=== PATIENT | female | born 1980 | race Caucasian/White ===

== ENCOUNTER 2016-10-30 05:41 | Day surgery (SDC) | payer OTHER ==
[~2016-10-30] VITALS: Ht 170.2 cm; Wt 133.1 kg
[2016-10-30] VITALS (29 sets, daily range): BP systolic 124–164; BP diastolic 59–87; PULSE 56–92; RESP 12–19; TEMP 96.9–98.8; O2SAT 90–100; Ht 170.2 cm; Wt 133.1 kg
[~2016-10-30 05:41] MED LIST: DOCU-168 PO; LABE100T19 PO
[2016-10-30] MEDS ORDERED: BUPIVACAINE 0.25% (2.5mg/ml) INJ 30ml SDV ONE (06:19)
[2016-10-30 06:21] LABS: BASOPHILS % (AUTO) 0.3 % (0-2); EOSINOPHILS # (AUTO) 0.2 T/MM3 (0-0.5); EOSINOPHILS % (AUTO) 2.9 % (0-4); HCT - HEMATOCRIT 39.1 % (36-46); IMMATURE GRANULOCYTE # (AUTO) 0.01 T/MM3 (0.00-0.03); IMMATURE GRANULOCYTE % (AUTO) 0.1 % (0.0-0.5); LYMPHOCYTES % (AUTO) 38.3 % (23-45); MEAN CORPUSCULAR HGB 27.6 UUG (26-34); MEAN CORPUSCULAR HGB CONC(MCHC 33.2 GM/DL (31-37); MEAN PLATELET VOLUME 10.1 UM3 (9.4-12.4); MONOCYTES # (AUTO) 0.5 T/MM3 (0-0.8); MONOCYTES % (AUTO) 6.1 % (0-9.0); NEUTROPHILS % (AUTO) 52.3 % (33-66); RED BLOOD COUNT 4.71 M/MM3 (4.00-5.20); WBC - WHITE BLOOD COUNT 7.7 T/MM3 (4.5-11.0)
[2016-10-30 06:31] LABS: ALBUMIN 4.1 G/DL (3.5-5.0); ALBUMIN/GLOBULIN RATIO 1.1 RATIO (1.1-2.2); ALKALINE PHOSPHATASE 135 U/L (38-126); ALT (SGPT) 39 U/L (9-52); ANION GAP 15 MEQ/L (5-15); AST (SGOT) 25 U/L (14-36); BUN/CREATININE RATIO 13 RATIO (6-26); CALCIUM 9.6 MG/DL (8.4-10.2); CHLORIDE 105 MEQ/L (98-107); CO2 - CARBON DIOXIDE 24 MEQ/L (22-30); CREATININE 0.9 MG/DL (0.7-1.2); GLOMERULAR FILTRATION RATE 70; GLUCOSE 101 MG/DL (65-110); POTASSIUM 4.2 MEQ/L (3.6-5); SODIUM 144 MEQ/L (134-144); TOTAL PROTEIN 7.8 G/DL (6.3-8.2)
[2016-10-30] MEDS: LR 1,000 ML IV SCH ×2 (06:42→11:15)
[2016-10-30] MEDS ORDERED: LIDOCAINE 1% (10mg/ml) 2ml SDV INJ ONE (07:00)
--- NOTE | 2016-10-30 07:14 | ANESPREOP ---
Anesthesia Record Date and Time DATE: 10/30/16 TIME: 07:12 Pre-Op Diagnosis menometrorrhagia dysmenorrhea Proposed Surgical Procedure ROBOTIC HYSTERECTOMY Allergies: Coded Allergies: Sulfa (Sulfonamide Antibiotics) (Verified Allergy, Mild, HIVES, 10/30/16) Ht/Wt/BMI Height: 5 ' 7.00 " Weight: 130.100 kg BMI: 44.9 kg/m2 Vital Signs Date Time Temp Pulse Resp B/P Pulse Ox O2 Delivery O2 Flow Rate FiO2 10/30/16 06:15 98.7 87 15 164/85 96 Room Air Medications Inpatient Medications Current Medications Medications (Trade) Dose Ordered Sig/Tariq Start Time Stop Time Status Last Admin Dose Admin Lactated Ringer's (Lactated Ringers) 1,000 ml @ 100 mls/hr Q10H 10/30/16 07:00 10/30/16 06:42 100 MLS/HR Docusate Sodium (Colace) 100 Mg Capsule, 2 CAP PO DAILY, (Reported) Last Taken: on 10/28/16 1900 Labetalol Hcl (Labetalol Hcl) 100 Mg Tablet, 150 MG PO BID, (Reported) Last Taken: on 10/30/16 0515 Currently on Beta Yamil: Yes Beta Yamil Last Taken: 10-30-16 @ 0515 Medical/Surgical History Anesthesia PMH: Reports: *Hypertension, Denies: *Angina, *Diabetes, *[place], Anesthesia Reactions (NO AIRWAY ISSUES- ), Arthritis, CHF, Cancer, Clotting Problems, Deep Vein Thrombosis, Glaucoma, Malignant Hyperthermia, Renal Disease , Rheumatic Fever, Sleep Apnea, Thyroid Disease Smoking Status: Never smoker Has pt. smoked today?: No Use Chewing Tobacco?: No Second Hand Exposure: No Substance Use Type: does not use Substance last used: unknown Alcohol Intake: none Last Drink: unknown HX of Last Menstrual Period: OCTOBER 2016 Past Surgical History Orthopedic Surgeries: Yes - L ARM MASSES REMOVED 2010 Abdominal Surgeries: Yes - APPENDECTOMY IN 1995 Genitourinary Surgeries: Cardiac Surgeries: Endocrine Surgeries: Reproductive Surgeries: Yes - C SECTION X2,TUBAL Neurological Surgeries: Ear Surgeries: Nose Surgeries: Throat Surgeries: Other Surgeries: Anesthesia Adverse Reactions: FOUND none Family Hx of Anesthesia Advers: none Hx of Motion Sickness: No Pertinent Findings Laboratory Tests 10/30/16 06:13 Test 10/30/16 06:13 Human Chorionic Gonadotropin, Qual Negative (NEGATIVE) EKG Rhythm: Sinus Rhythm Physical Exam Respiratory: Bilat breath sounds equal, Lungs clear Cardiovascular: FOUND Regular rate, rhythm, FOUND No murmur Airway Assessment Mallampati Score: II TMD: 2 Fingerbreadths Neck Extension: Fair Overall Assessment: No Airway Concerns ASA: 2 Plan Anesthesia Plan: GETA Discussion Discussed risks/options/alternatives of anesthesia and questions answered. Patient consents. Nursing pain assessment noted. Present: Parent Attestation Statement Prior to the delivery of any anesthetic medication, I examined the patient, developed the plan, obtained the patient's consent and discussed the risk and benefits of the procedure with the patient/guardian. JESSICA CAST SWINE NUTRITIONIST Oct 30, 2016 07:14
[2016-10-30] MEDS ORDERED: FENTANYL 250mcg/5ml INJECTION ONE (07:18)
[2016-10-30] MEDS ORDERED: ROCURONIUM 50mg/5ml INJECTION IV ONE ×2 (07:18→08:02)
[2016-10-30] MEDS ORDERED: LIDOCAINE 2% (20mg/ml) 5ml PF SDV ONE (07:18)
[2016-10-30] MEDS ORDERED: PROPOFOL 200mg 20 ML IV ONE (07:18)
[2016-10-30] MEDS ORDERED: MIDAZOLAM 2mg/2ml INJECTION ONE (07:19)
[2016-10-30] MEDS ORDERED: CEFAZOLIN 1 GRAM INJECTION IV ONE (07:30)
[2016-10-30] MEDS ORDERED: DESFLURANE 240 ML LIQUID IH ONE (08:02)
[2016-10-30 08:37] LABS: BLOOD, URINE 1+ (NEGATIVE); COLOR,URINE YELLOW (YELLOW); LEUKOCYTE ESTERASE ,URINE NEGATIVE (NEGATIVE); NITRITE,URINE NEGATIVE (NEGATIVE); UROBILINOGEN,URINE 0.2 EU/DL (NORMAL)
[2016-10-30] MEDS ORDERED: FENTANYL 100mcg/2ml INJECTION ONE (08:55)
[2016-10-30 09:02] LABS: BACTERIA,URINE TRACE (NEGATIVE); HYALINE CASTS, URINE 0-1 /LPF; RBC,URINE 0-1 /HPF (0-3); SQUAMOUS EPITHELIAL CELL,UR 0-5; WBC,URINE NONE SEEN /HPF (0-5)
[2016-10-30] MEDS ORDERED: SUGAMMADEX 200 MG/2 ML INJECTION IV ONE (10:20)
[2016-10-30] MEDS ORDERED: KETOROLAC 30mg/ml INJECTION ONE (10:26)
--- NOTE | 2016-10-30 10:35 | GYNOPNOTE1 ---
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
[2016-10-30] MEDS ORDERED: HYDROMORPHONE 2mg/ml INJECTION IV PRN (10:45)
[2016-10-30] MEDS ORDERED: FENTANYL 100mcg/2ml INJECTION IV PRN (10:45)
[2016-10-30] MEDS ORDERED: METOCLOPRAMIDE 10mg/2ml INJECTION IV PRN (10:45)
[2016-10-30] MEDS ORDERED: MORPHINE SULFATE 4 MG SYRINGE IV PRN (10:45)
[2016-10-30] MEDS ORDERED: ONDANSETRON 4mg/2ml INJECTION IV PRN (10:45)
[2016-10-30] MEDS: HYDROMORPHONE 2mg/ml INJECTION IV PRN ×4 (10:59→11:31)
--- NOTE | 2016-10-30 12:00 | NUR ---
Admit Pt transferred self from cart to bed by self at this time. VS stable on RA. Post op VS started. Couch bag patent and draining. Drainage circled on bandages to lap sites. Pt denies nausea. Pt encouraged to start oral intake with jello and/or crackers. Family present at time of transfer. Side rails up X2, call light w/in reach, bed alarm on. Will continue to monitor.
[2016-10-30] MEDS: HYDROCODONE/APAP 5 mg/325 mg TABLET PO PRN ×3 (12:32→23:37)
--- NOTE | 2016-10-30 14:57 | ANESPO ---
Post-Op Note Date 10/30/16 Time: 14:56 Status Pt Participated in Evaluation: Pt participated in person Vital Signs Date Time Temp Pulse Resp B/P Pulse Ox O2 Delivery O2 Flow Rate FiO2 10/30/16 14:07 76 139/64 97 Room Air 10/30/16 13:33 14 10/30/16 12:07 97.5 10/30/16 10:50 6.00 Respiratory Function: Airway patent Cardiovascular Function: Regular pulse Telemetry Pattern: SR Mental Status: Alert/oriented Pain Level Intensity: 6 Hydration: Taking po fluids, IV infusing Complications during Recovery None apparent Follow-Up Instructions Instructions Per Surgeon ALEXANDRIA CORTEZ CRNA Oct 30, 2016 14:57
--- NOTE | 2016-10-30 17:34 | NUR ---
Pain Pt rating pain at this time a 5/10. Pt requested to just take 1 PO [place] at this time. This RN has also offered Motrin to Pt, Pt refused Motrin at this time. Will continue to monitor.
[2016-10-30] MEDS ORDERED: HYDR-4246 PO (18:03)
[2016-10-30] MEDS: IBUPROFEN 800 MG TABLET PO PRN (18:42)
--- NOTE | 2016-10-30 19:02 | NUR ---
Summary Pt A&O X3. VS stable on RA. Bandages to lap sites intact, drainage circled. Couch catheter DC'd. Pt has ambulated in hallway twice this shift and tolerated well. Pt had denied nausea. PRN [place] and Motrin given as ordered. present at room at this time. Pt up with standby assistance. Pt was up to chair this shift for lunch. Pt now sitting on side of bed eating dinner. Pt verbalized "I am working towards going home tonight." Side rails up X2, call light w/in reach.
[2016-10-31 00:05] VITALS: BP 129/75; PULSE 88; RESP 18; TEMP 97.8; O2SAT 93
[2016-10-31] MEDS: IBUPROFEN 800 MG TABLET PO PRN ×2 (00:31→08:49)
--- NOTE | 2016-10-31 00:31 | NUR ---
PT computer is not scanning.
[2016-10-31 04:13] VITALS: BP 129/69; PULSE 86; RESP 18; TEMP 97.8; O2SAT 95
--- NOTE | 2016-10-31 06:28 | NUR ---
Shift summary: PT a/ox3. PT goal was to go home last night. PT was not able to void until 2158. PT voided moderate amount at this time. PT LCTAB, pt passising mnimal gas. PT VSS.
[2016-10-31 07:43] VITALS: BP 155/75; PULSE 82; RESP 16; TEMP 97.8; O2SAT 95
[2016-10-31 08:14] VITALS: BP 145/77; PULSE 85; RESP 18
--- NOTE | 2016-10-31 08:42 | GSPOSTPN ---
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
[2016-10-31] MEDS: HYDROCODONE/APAP 5 mg/325 mg TABLET PO PRN (08:59)
--- NOTE | 2016-10-31 09:08 | NUR ---
CM CM IN TO VISIT WITH PT. SHE IS ALERT AND ORIENTED. SHE PLANS TO DC HOME. SHE DENIES DC NEEDS. LACE SCORE IS 1. PT IS GIVEN CM CONTACT INFORMATION. Addendum: 10/31/16 at 0909 by SUGAR QUIROZ RN Amended: Links added.
--- NOTE | 2016-10-31 10:22 | NUR ---
Discharge Pt discharged at this time ambulatory through the ER entrance in the company of an adult. IV catheter DC'd prior to discharge, catheter tip intact. VS stable on RA. Wristband removed. Discharge packet and instructions discussed with Pt. This RN discussed medications, activity, diet, restrictions, and follow up appt with Pt. Pt verbalized understanding and had no further questions.
--- NOTE | 2016-11-01 13:01 | OPNOTEF ---
DATE OF SURGERY 10/30/2016 PREOPERATIVE DIAGNOSES 1. Dysmenorrhea. 2. Menometrorrhagia. POSTOPERATIVE DIAGNOSES 1. Dysmenorrhea. 2. Menometrorrhagia. PROCEDURE Robotic-assisted laparoscopic hysterectomy with bilateral salpingectomy, lysis of adhesions. SURGEON Nancie Cruz MD ANESTHESIA General endotracheal. ANESTHESIOLOGIST Chandler Moreno CRNA ESTIMATED BLOOD LOSS 20 mL OPERATIVE FINDINGS Adhesions between omentum and anterior abdominal wall and right pelvic side wall. Normal-appearing uterus, tubes and ovaries. Normal liver edge. Gallbladder was free of lesions. Appendix not seen. DESCRIPTION Ms. Rouse was brought to the OR and placed on the OR table in a comfortable supine position. She was given general anesthesia and intubated without difficulty. She was then placed in the standard lithotomy position and I performed a bimanual exam. The abdomen, perineum and vagina were prepped and draped in the usual sterile fashion. I then visualized the cervix with a Freeway speculum. Cervix was grasped with a single-tooth tenaculum. Simple ligatures of 2-0 Vicryl were placed through the cervix at the 3 and 9 o'clock positions. The uterine cavity was then sounded to a depth of 10 cm. The cervix was serially dilated until the larger VCare uterine manipulator could be inserted. This was done. The balloon was filled with air. The cup of the manipulator was then secured tightly to the cervicovaginal angle using the sutures and the other instruments were removed. We then placed a Couch catheter to dependent drain and moved the patient to the low lithotomy position. I then regloved. The supraumbilical region was infiltrated with dilute Marcaine. A 12-mm incision was made. Tenting up the abdomen, the Veress needle was inserted through the incision. The abdomen was insufflated with CO2 until pressures of 12-15 mmHg were achieved. We removed the Veress needle. Then, tenting up the abdomen again, we inserted the 12-mm trocar through this incision. We then used this port for placement of the 0-degree laparoscope. Findings initially were as described above. We then placed three operative sites - one in the patient's right, one in the patient's left and one in the left upper quadrant. Each area was transilluminated, infiltrated with dilute Marcaine and incision made. Under direct visualization trocars were placed through these sites. The left upper quadrant was used by the public aid eligibility assistant and the others were for attachment to robotic instruments. We then placed the patient in steep Trendelenburg and swept the bowel clear of the pelvis as much as we could, given the adhesions. We docked the robot and I sat at the console. Initially, I worked very hard to free up the omental adhesions using sharp dissection and monopolar cautery, and staying very close to the abdominal wall. I carefully snipped and used blunt dissection to dissect the omentum free of the abdominal wall down to its attachment on the right pelvic sidewall. At this point I felt I was able to see enough of the pelvis to proceed with the surgery. We then grasped the left round ligament with the bipolar fenestrated cautery. The ligament was cauterized thoroughly until no viable tissue remained. I then used monopolar scissors to cut through the tissue. Please note that this was the method used to transect tissue throughout the procedure unless otherwise described. We then cut through the utero-ovarian ligament on the left in this fashion. The public aid eligibility assistant elevated the left fallopian tube and I transected the mesosalpinx of it to the level of the prior tubal ligation. This small segment of distal fallopian tube was then brought out by the public aid eligibility assistant and sent with the entire specimen to Pathology later. The mesovarium was then cut through down to the round ligament on the left. Anteriorly, the bladder was somewhat adherent to the lower uterine segment from the patient's prior C-sections. We carefully tented the vesicouterine fold of peritoneum up and incised it, carefully bluntly and sharply dissecting it free of the lower uterine segment to just below the level of the cervicovaginal angle. We could easily see throughout the case where the imprint of the manipulator cup was in the vagina. We also were able to see the left ureter coursing well below the area of operation. Later we saw the right one in the same fashion. The broad ligament on the left was skeletonized using cautery and sharp dissection to the uterine vessels. These were cauterized thoroughly. One we were assured hemostasis was under good control, we turned our attention to the right side of the hysterectomy. We were able to work around the remaining adhesions and follow the exact same procedure to perform the right side. There was a small segment of the middle section of the fallopian tube that was adherent to the patient's right ovary, a matter of how she healed after laparoscopic tubal ligation several years ago. We removed the distal section of tube. However, after hysterectomy there was a small segment of the fallopian tube still adherent to the patient's right adnexa and I felt it was in her best interest simply to leave it there as the fimbria had already been sent to Pathology. After securing the vessels on the right we then further bluntly and sharply dissected the bladder just below the cervicovaginal angle. I then used the sharp feature of cautery to cut into the vaginal mucosa, circumferentially cutting around the cervix. The public aid eligibility assistant below was able to remove the cervix, uterus and bilateral stumps of fallopian tubes from below. After gnosticism of the pneumoperitoneum, we irrigated copiously with sterile normal saline. There were some small areas of bleeding along the posterior vaginal cuff that were controlled easily with monopolar cautery. 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 I closed the vaginal cuff using a 2-0 barbed Covidien suture. This was performed in a running nonlocking fashion, doubling back for a double-layer closure. I and made sure to include vaginal mucosa and secure the angles to the uterosacral ligaments bilaterally. We then snipped the suture at the level of the tissue and passed the needle out. The bladder was then filled with sterile normal saline. The edge of it was well below our area of operation and there was no evidence of intrusion into the bladder. After draining the bladder I then was able to get a better view of where bowel was in relation to the right omental adhesions and was able to better dissect those free completely of the right side wall, again staying close to the abdominal wall and using sharp and monopolar cautery for dissection. After freeing the omentum we dropped the pneumoperitoneum to as low a pressure as it would go with the AirSeal. Hemostasis remained under good control. We then restored the pneumoperitoneum. While I was re-gowning and re- gloving, the public aid eligibility assistant undocked the robot. Once I returned to the table side we reinspected the cuff and all areas of operation. These remained hemostatic. We then took the patient out of Trendelenburg and removed our operative ports. We used the AirSeal to remove all of the CO2 and then removed its port. I was careful not to touch the camera to tissue at any time. We removed the camera and its port last. We then reapproximated the larger incision at the fascial layer with a simple ligature of 2-0 Vicryl. All the wounds were then reapproximated with subcuticular style 3-0 undyed Vicryl. The wounds were dressed with sterile dressing. Counts were correct postoperatively x 2. The urine remained clear and free-flowing throughout the procedure. I then reinspected the vaginal cuff. It was hemostatic. I palpated it and it was intact. There was a superficial first-degree midline laceration that occurred during the course of removing the uterus. I repaired this with a subcuticular style 3-0 Monocryl. We left the Couch catheter in place and returned Mrs. Rouse to the supine position. She was then brought out from under anesthesia, extubated and transferred to recovery in stable condition. BULMARO
== END 2016-10-31 10:22 | disposition home or self-care (01) ==
LOC: SCU 05:41 → SRG 05:46 → SCU 10-31 10:22
PROVIDERS: ATTEND Obstetrics & Gynecology
DX: N72 Inflammatory disease of cervix uteri (principal); D25.1 Intramural leiomyoma of uterus; D25.2 Subserosal leiomyoma of uterus; N85.8 Other specified noninflammatory disorders of uterus; N92.1 Excessive and frequent menstruation with irregular cycle; N94.4 Primary dysmenorrhea
CPT/HCPCS: 36415; 58571; 80053; 81001; 84703; 85025; 86850; 86900; 86901; J0330; J0690; J1170; J1885; J2250; J2704; J3010; J7030; J7120; S2900